=== PATIENT | female | born 1980 | race Hispanic/Latino ===

== ENCOUNTER 2024-11-24 20:07 | Emergency (ER) | payer OTHER ==
[~2024-11-24] VITALS: Ht 165.1 cm; Wt 99.8 kg
--- NOTE | 2024-11-24 20:34 | ERN ---
ED Note History of Present Illness Stated Complaint: NAUSEA, FAST HEART RATE, ANXIOUS Chief Complaint: Palpitations Time Seen by MD: 20:13 Time Seen by Midlevel: 20:13 Dictation: The patient is a 44-year-old female with a history of cholecystectomy who presents to the emergency department with complaints of palpitations, feeling anxious after getting an argument with her brother about 2 hours prior to arrival. Patient denies any chest pain. Reports some shortness of breath. Patient also reports some nausea. Allergies: Coded Allergies: No Known Allergies (Unverified Allergy, Unknown, 11/24/24) Home Meds Active Scripts Nitrofurantoin Monohyd/M-Cryst (Macrobid 100 mg Capsule) 100 Mg Capsule, 1 CAP PO BID for 5 Days, #10 CAP 0 Refills Prov:HELLEN VILLATORO BENZOL OPERATOR 11/24/24 Hydroxyzine HCl (Hydroxyzine HCl) 25 Mg Tablet, 1 TAB PO BID for anxiety for 30 Days, #60 TAB 0 Refills Prov:HELLEN VILLATORO BENZOL OPERATOR 11/24/24 Past Medical History Past Medical History: Gallstones Surgical History: None RN Note Reviewed/Agreed w/PFSH: Yes Review of System Dictation Constitutional: Negative for fever,chills, and weight loss Eyes: Negative for injury, pain,redness, and discharge ENT: Negative for injury,pain or swelling Cardiovascular: Negative for chest pain, and edema positive for palpitations Respiratory: Negative for shortness of breath, cough, and wheezing, Abdomen/GI: Negative for abdominal pain, vomiting, diarrhea, and constipation positive for nausea Back: Negative for injury and pain : Negative for injury, bleeding and discharge MS/Extremity: Negative for injury and deformity Skin: Negative for rash, and discoloration Neuro: Negative for headache, weakness, numbness, tingling, and seizure Psych: Negative for suicide ideation, homicidal ideation, and hallucinations Initial Vital Sign VS Vital Signs Date Time Temp Pulse Resp B/P (MAP) Pulse Ox O2 Delivery O2 Flow Rate FiO2 11/24/24 20:10 97.2 101 18 133/94 99 Room Air 0 11/24/24 20:58 21 Physical Exam Dictation Vital Signs reviewed General Appearance: Alert, oriented x 3, no acute distress, well developed, nourished, appears anxious. Head and Face: non-traumatic. Eyes: PERRL, pink conjunctivas, eyelid no trauma, anterior chamber with arcus senilis. Ears: Pinnas intact and no signs of trauma or erythema ear canals clear and no discharge TM no erythema Nose: No discharge, no bleeding. Oropharynx: Mouth normal, tongue pink. pharynx clear,no erythema, tonsils no exudates, no abscesses noted, mucous membrane moist Neck: Supple, non-tender, no thyromegaly, no masses, no JVD, no bruits Breast:Deferred Chest:No tenderness, no crepitus, no paradoxical movement, no retractions Lungs:Clear, well-ventilated, symmetric, no rales, no wheezing, no rhonchi, no stridor, good breath sounds bilaterally Heart: Regular rate, regular rhythm, no murmur, no gallops Vascular: no peripheral edema, Abdomen: Soft, positive bowel sounds, nondistended, no guarding, nontender, no rebound, no masses no hepatomegaly, no splenomegaly, no Spencer's sign, no hernias. Rectal: Deferred Genital: Deferred Neurological: Normal speech, motor function intact, sensory function intact Musculoskeletal: Neck nontender, full range of motion, back nontender, full range of motion, Extremities: nontender, full range of motion Skin: Color pink, dry, no turgor, no rash, no lacerations, no abrasions, no contusions. Lymphatic: Deferred Results (Laboratory/Radiology) Laboratory/Radiology Laboratory Tests Test 11/24/24 20:29 11/24/24 20:54 White Blood Count 14.8 K/uL (4.8-10.8) H Red Blood Count 4.51 MIL/uL (4.00-5.50) Hemoglobin 12.9 g/dL (12.0-16.0) Hematocrit 38.4 % (36-48) Mean Corpuscular Volume 85.1 fL (79-99) Mean Corpuscular Hemoglobin 28.6 pg (27.0-33.0) Mean Corpuscular Hemoglobin Concent 33.6 g/dL (32.0-36.0) Red Cell Distribution Width 14.6 % (11.0-15.5) Platelet Count 349 K/uL (130-400) Mean Platelet Volume 10.8 fL (7.5-10.5) H Immature Granulocyte % (Auto) 0.5 % (0-1) Neutrophils (%) (Auto) 84.9 % (40.0-77.0) H Lymphocytes (%) (Auto) 9.9 % (21.0-51.0) L Monocytes (%) (Auto) 4.5 % (3.0-13.0) Eosinophils (%) (Auto) 0.1 % (0.0-8.0) Basophils (%) (Auto) 0.1 % (0.0-5.0) Neutrophils # (Auto) 12.6 K/uL (1.8-7.7) H Lymphocytes # (Auto) 1.5 K/uL (1.0-4.8) Monocytes # (Auto) 0.7 K/uL (0.1-1.0) Eosinophils # (Auto) 0.02 K/uL (0.00-0.70) Basophils # (Auto) 0.02 K/uL (0.00-0.20) Absolute Immature Granulocyte (auto 0.07 K/uL (0-1) Nucleated Red Blood Cells 0.0 % (0.0-0.19) White Cell Morphology Comment See comments Sodium Level 134 mmol/L (136-145) L Potassium Level 3.5 mmol/L (3.5-5.1) Chloride Level 100 mmol/L (101-111) L Carbon Dioxide Level 25 mmol/L (21-32) Blood Urea Nitrogen 11 mg/dL (7-18) Creatinine 0.7 mg/dL (0.5-1.0) Glomerular Filtration Rate Calc 110 mL/min (>90) Random Glucose 107 mg/dL (70-105) H Total Calcium 9.1 mg/dL (8.5-10.1) Total Creatine Kinase 63 U/L (21-232) Troponin I High Sensitivity 7 ng/L (4-50) Urine Color COLORLESS (YELLOW) Urine Appearance CLEAR (CLEAR) Urine pH 5.5 (5.0-8.0) Urine Specific [place] 1.007 (1.001-1.031) Urine Protein NEGATIVE mg/dL (NEGATIVE) Urine Glucose (UA) NEGATIVE mg/dL (NEGATIVE) Urine Ketones 10 mg/dL (NEGATIVE) H Urine Occult Blood LARGE (NEGATIVE) H Urine Nitrate NEGATIVE (NEGATIVE) Urine Bilirubin NEGATIVE mg/dL (NEGATIVE) Urine Urobilinogen 0.2 mg/dL (0.2-1.0) Urine Leukocyte Esterase 25 [place]/uL (NEGATIVE) H Urine RBC 6-10 /HPF (0-1) H Urine WBC 2-5 /HPF (0-1) H Urine Squamous Epithelial Cells FEW /HPF (0-2) Urine Other Crystals (Auto) 2 /HPF (None Seen) Urine Bacteria FEW /HPF (None Seen) Urine HCG, Qualitative NEGATIVE (NEGATIVE) REASON: CHEST PAIN ORDERING PHYSICIAN: HELLEN VILLATORO BENZOL OPERATOR PROCEDURE: CXR1VW - CHEST 1VW EXAM: CR Chest, 1 View. CLINICAL HISTORY: CHEST PAIN COMPARISON: None provided. FINDINGS: LUNGS: There is no mass, infiltrate, or acute pulmonary abnormality. PLEURAL SPACES: No pleural effusion or pneumothorax. MEDIASTINUM: Cardiac size and mediastinal contours within normal limits. BONES: No aggressive appearing osseous lesion seen. IMPRESSION: No acute cardiopulmonary pathology is evident. /[employer] Labs Reviewed?: Yes EKG: (+) rhythm (Sinus rhythm) EKG Comment: Date:11/24/2024 Time:2017 Ventricular rate:91 FL interval:163 QRS duration:81 QT/QTc:361 EKG interpretation: Sinus rhythm Reviewed by ED Attending no STEMI ED Course ED Course Orders Procedure Category Date Status Time Vital Signs Per CPOE 11/24/24 Transmitted Routine 20:20 Chest 1vw RAD 11/24/24 Resulted 20:20 12 Lead Ekg Tracing- EKG 11/24/24 Logged Technical 20:20 Oxygen By Nc/Pulse Ox CPOE 11/24/24 Transmitted 20:20 Maintain Iv CPOE 11/24/24 Transmitted 20:20 Iv Insertion CPOE 11/24/24 Transmitted 20:20 Cardiac Monitoring CPOE 11/24/24 Transmitted 20:20 Pulse Oximetry With CPOE 11/24/24 Transmitted Vs And Prn 20:20 Cbc With Differential LAB 11/24/24 Complete 20:20 Activity: Br W/Brp CPOE 11/24/24 Transmitted With Assist 20:20 Creatine Kinase, Total LAB 11/24/24 Complete 20:20 Troponin I High LAB 11/24/24 Complete Sensitivity 20:20 Urinalysis Profile LAB 11/24/24 Complete 20:20 Basic Metabolic Panel LAB 11/24/24 Complete 20:20 ,Urine Test LAB 11/24/24 Complete 20:25 0.9%Nacl 1000ml (Ns PHA 11/24/24 Complete 1000ml) 20:30 Ondansetron 4mg Inj PHA 11/24/24 Complete (Zofran 4mg Inj) 20:30 Lorazepam 1 Mg PHA 11/24/24 Complete (Ativan) 20:30 Ceftriaxone 1g Vial PHA 11/24/24 Complete (Rocephine 1g Inj) 21:30 Current Medications Medications (Trade) Dose Ordered Sig/Syd Route PRN Reason Start Time Stop Time Status Last Admin Dose Admin Ceftriaxone Sodium (ROCEphine 1G INJ) 1 gm ONCE ONCE IVPB 11/24/24 21:30 11/24/24 21:31 DC 11/24/24 21:39 Lorazepam (AtiVAN) 1 mg ONCE ONCE PO 11/24/24 20:30 11/24/24 20:31 DC 11/24/24 20:41 Ondansetron HCl (zoFRAN 4MG INJ) 4 mg ONCE ONCE IVP 11/24/24 20:30 11/24/24 20:31 DC 11/24/24 20:41 Sodium Chloride 1,000 ml @ 0 mls/hr ONCE ONCE IV 11/24/24 20:30 11/24/24 20:31 DC 11/24/24 20:41 Vital Signs Date Time Temp Pulse Resp B/P (MAP) Pulse Ox O2 Delivery O2 Flow Rate FiO2 11/24/24 22:50 98.4 79 20 129/76 98 Room Air* 0 21 11/24/24 20:58 83 20 136/83 98 Room Air* 0 21 11/24/24 20:10 97.2 101 18 133/94 99 Room Air 0 Medical Decision Making MDM The patient is a 44-year-old female with a history of cholecystectomy who presents to the emergency department with complaints of palpitations, feeling anxious after getting an argument with her brother about 2 hours prior to arrival. Patient denies any chest pain. Reports some shortness of breath. Patient also reports some nausea. CBC showed mild leukocytosis, no anemia, chemistry showed mild hyponatremia, hypochloremia, negative troponin urinalysis positive for leukocyte esterase. Patient will be giving a dose of Rocephin. X-ray showed no acute pathology. Patient with no chest pain. Symptoms probably related to anxiety. EKG showed normal sinus rhythm. Patient also received IV fluids for mild dehydration. Patient reports feeling more calm. Labs and imaging discussed with the patient who agrees to be discharged and follow up with PCP. On physical exam patient has a nontender abdomen. In no acute distress.No lower extremity swelling or redness, no tachycardia or hypoxia. Differential diagnosis: Electrolyte imbalance, anxiety, dehydration, ACS Need for hospitalization: Patient does not meet criteria for hospitalization. There are no social concerns with this patient. DX & DISP Disposition: Discharge Departure Impression: Primary Impression: Anxiety Additional Impressions: Mild dehydration, UTI (urinary tract infection) Condition: Stable Scripts Nitrofurantoin Monohyd/M-Cryst (Macrobid 100 mg Capsule) 100 Mg Capsule 1 CAP PO BID for 5 Days, #10 CAP 0 Refills Prov: HELLEN VILLATORO 11/24/24 Hydroxyzine HCl (Hydroxyzine HCl) 25 Mg Tablet 1 TAB PO BID for anxiety for 30 Days, #60 TAB 0 Refills Prov: HELLEN VILLATORO 11/24/24 Additional Instructions: Your labs showed mild dehydration and a urinary tract infection. Please continue oral hydration at home. Take your antibiotics as prescribed. If anything worsens please return to ER. FOLLOW-UP WITH PRIMARY CARE PROVIDER IN 1 TO 2 DAYS. TAKE MEDICATIONS DIRECTED HERE IN THE EMERGENCY ROOM. OKAY TO CONTINUE HOME MEDICATIONS UNLESS OTHERWISE DISCUSSED DURING YOUR VISIT IN THE EMERGENCY ROOM TODAY. RETURN TO YOUR NEAREST EMERGENCY ROOM IF SYMPTOMS WORSEN OR IF THERE IS NO IMPROVEMENT. CALL 911 IF YOU NEED IMMEDIATE ASSISTANCE. TAKE TYLENOL [id number] NEEDED AND IF NO CONTRAINDICATIONS ARE PRESENT. INCREASE ORAL HYDRATION. A WOUND CULTURE OR URINE CULTURE WAS ORDERED HERE IN THE EMERGENCY ROOM DEPARTMENT PLEASE FOLLOW-UP WITH PRIMARY CARE PROVIDER AND ADVISE THEM TO GET REPEAT PORTS FROM OUR FACILITY. IF YOU HAD ANY MAYLIN WRAP/SPLINTS THAT WERE APPLIED HERE, PLEASE DO NOT REMOVE THEM UNTIL YOU SEE YOUR PRIMARY CARE OR SPECIALTY. Referrals: SELF,REFERRAL (PCP) Time of Disposition: 22:37 I have reviewed the case, and I agree with, Diagnosis and Plan HELLEN VILLATORO Nov 24, 2024 20:34
[2024-11-24 20:36] LABS: BASOPHILS # (AUTO) 0.02 K/uL (0.00-0.20); BASOPHILS % (AUTO) 0.1 % (0.0-5.0); EOSINOPHILS # (AUTO) 0.02 K/uL (0.00-0.70); EOSINOPHILS % (AUTO) 0.1 % (0.0-8.0); HEMATOCRIT 38.4 % (36-48); IMMATURE GRANULOCYTE ABSOLUTE 0.07 K/uL (0-1); LYMPHOCYTES # (AUTO) 1.5 K/uL (1.0-4.8); LYMPHOCYTES % (AUTO) 9.9 % (21.0-51.0); MEAN CORPUSCULAR HEMOGLOBIN 28.6 pg (27.0-33.0); MEAN CORPUSCULAR HGB CONC 33.6 g/dL (32.0-36.0); MEAN CORPUSCULAR VOLUME 85.1 fL (79-99); MONOCYTES # (AUTO) 0.7 K/uL (0.1-1.0); MONOCYTES % (AUTO) 4.5 % (3.0-13.0); NEUTROPHILS # (AUTO) 12.6 K/uL (1.8-7.7); NEUTROPHILS % (AUTO) 84.9 % (40.0-77.0); PLATELET COUNT (AUTO) 349 K/uL (130-400); RED BLOOD CELL COUNT(AUTO) 4.51 MIL/uL (4.00-5.50); RED CELL DISTRIBUTION WIDTH 14.6 % (11.0-15.5); WHITE BLOOD COUNT (AUTO) 14.8 K/uL (4.8-10.8)
[2024-11-24] MEDS: 0.9%NACL 1000ML 1,000 ML IV ONE (20:41)
[2024-11-24] MEDS: LORazepam 1 MG TABLET PO ONE (20:41)
[2024-11-24] MEDS: ondanSETRON 4MG INJ IVP ONE (20:41)
[2024-11-24 20:46] LABS: CREATININE 0.7 mg/dL (0.5-1.0); POTASSIUM 3.5 mmol/L (3.5-5.1)
[2024-11-24 21:04] LABS: ADD UA MICROSCOPIC YES; APPEARANCE,URINE CLEAR (CLEAR); BILIRUBIN,URINE NEGATIVE (NEGATIVE); COLOR,URINE COLORLESS (YELLOW); GLUCOSE, URINE (UA) NEGATIVE (NEGATIVE); KETONES,URINE 10 mg/dL (NEGATIVE); LEUKOCYTE ESTERASE ,URINE 25 Leu/uL (NEGATIVE); NITRATE,URINE NEGATIVE (NEGATIVE); OCCULT BLOOD,URINE LARGE (NEGATIVE); PH,URINE 5.5 (5.0-8.0); PROTEIN,URINE NEGATIVE (NEGATIVE); UROBILINOGEN,URINE 0.2 mg/dL (0.2-1.0)
[2024-11-24 21:08] LABS: BACTERIA,URINE FEW /HPF (None Seen); MUCUS,URINE RARE LPF (None Seen); SQUAMOUS EPITHELIAL CELL,UR FEW /HPF (0-2); UNCLASSIFIED CRYSTAL 2 /HPF (None Seen)
[2024-11-24] MEDS: cefTRIAXone 1G VIAL IVPB ONE (21:39)
--- NOTE | 2024-11-24 22:00 | HMCIMG ---
EXAM: CR Chest, 1 View. CLINICAL HISTORY: CHEST PAIN COMPARISON: None provided. FINDINGS: LUNGS: There is no mass, infiltrate, or acute pulmonary abnormality. PLEURAL SPACES: No pleural effusion or pneumothorax. MEDIASTINUM: Cardiac size and mediastinal contours within normal limits. BONES: No aggressive appearing osseous lesion seen. IMPRESSION: No acute cardiopulmonary pathology is evident. /[place]
[2024-11-24] MEDS ORDERED: NITR100C4 PO (22:38)
[2024-11-24] MEDS ORDERED: HYDR-3421 PO (22:38)
[2024-11-24 22:50] VITALS: BP 129/76; PULSE 79; RESP 20; TEMP 98.5; O2SAT 98
--- NOTE | 2024-11-25 07:33 | EKG ---
[facility] Test Date: 2024-11-24 Test Time: 20:18:05 Pat Name: FINN ALONZO Department: ED Room: Gender: F Front Tender: [id number] : 1980 Requested By: HELLEN VILLATORO Order Number: [id number] Reading MD: Braden Valadez Measurements Intervals [place] Rate: 91 P: 47 CA: 163 QRS: 21 QRSD: 81 T: -10 QT: 361 QTc: 446 Interpretive Statements Sinus rhythm Low voltage, precordial leads No previous ECG available for comparison Electronically Signed On 11-25-2024 13:08:55 CDT by Braden Valadez Please click the below link to view image of tracing.
== END 2024-11-24 22:57 | disposition home or self-care (01) ==
LOC: EDH 20:07
DX: F41.9 Anxiety disorder, unspecified (principal); E86.0 Dehydration; N39.0 Urinary tract infection, site not specified; Z79.899 Other long term (current) drug therapy
CPT/HCPCS: 99285; 96374; 71045; 96361; 96375; 82550; 84484; 80048; 85025; 81001; 81025; 36415; 93005; J7030; J0696; J2405; 99284